=== PATIENT | female | born 1970 | race Caucasian/White ===

== ENCOUNTER 2016-10-09 19:01 | Emergency (ER) | payer MEDICAID ==
[2016-10-12 14:38] VITALS: BMI 24.3
== END 2016-10-09 21:54 | disposition home or self-care (01) ==
LOC: D.ER 19:01
DX: S30.860A Insect bite (nonvenomous) of lower back and pelvis, initial encounter (principal); W57.XXXA Bitten or stung by nonvenomous insect and other nonvenomous arthropods, initial encounter; Y93.89 Activity, other specified; Y92.89 Other specified places as the place of occurrence of the external cause; F17.200 Nicotine dependence, unspecified, uncomplicated

== ENCOUNTER 2016-10-12 11:29 | Inpatient (IN) | payer MEDICAID ==
[~2016-10-12] VITALS: Ht 170.2 cm; Wt 76.5 kg
[2016-10-12 12:24] LABS: BASOPHILS 0.1 % (0-2); EOSINOPHILS 0.8 % (0-7); HEMATOCRIT 40.8 % (36.0-48.0); HEMOGLOBIN 13.2 g/dL (12-16); IMMATURE GRANULOCYTES 0.4 % (0-5); LYMPHOCYTES 14.6 % (15-50); MCH 28.4 pg (26.0-34.0); MCHC 32.4 g/dL (31.0-37.0); MCV 87.7 fL (80.0-100.0); MEAN PLATELET VOLUME 10.2 fL (7.4-10.4); MONOCYTES 7.7 % (2-11); NEUTROPHILS 76.4 % (40-80); PLATELET COUNT 231 10x3/uL (130-400); RBC 4.65 10x6/uL (4.00-5.40); RDW 14.2 % (11.5-14.5); WBC 10.4 10x3/uL (4.8-10.8)
[2016-10-12 12:40] LABS: ANION GAP 12.8 mmol/L (8-16); CALCIUM 8.8 mg/dL (8.5-10.1); CARBON DIOXIDE 27.3 mmol/L (21.0-32.0); CREATININE - SERUM 1.1 mg/dL (0.6-1.3); POTASSIUM - SERUM 4.1 mmol/L (3.5-5.1)
[2016-10-12 14:38] VITALS: BP 116/62; Ht 170.2 cm; Wt 76.5 kg
--- NOTE | 2016-10-12 15:09 | NUR ---
PT AOX4 RESP EVEN AND NONLABORED PT COMPLAINS OF PAIN AT THIS TIME IN RIGHT HIP NO DRAINAGE FROM SITE. BLACK RING DRAWN AT BORDER OF REDNESS PRESENT AT ARRIVAL. IV TO LEFT FOREARM PATENT AND INTACT AT THIS TIME. SRX2 BED AT LOWEST SETTING CALL LIGHT WITHIN REACH WILL CONINTUE TO MONITOR
[2016-10-12 16:30] VITALS: BP 93/47
[2016-10-12 20:00] VITALS: BP 105/37
--- NOTE | 2016-10-12 20:45 | NUR ---
PATIENT RESTING IN BED AND DENIES NEEDS AT THIS TIME. ADMINISTERED MEDS PER ORDERS. BED IN LOWEST POSITION AND CALL LIGHT WITHIN REACH. ENCOURAGED THE PATIENT TO CALL IF SHE HAS NEEDS.
[2016-10-13 04:00] VITALS: BP 88/41
[2016-10-13 05:11] LABS: BASOPHILS 0.2 % (0-2); EOSINOPHILS 1.3 % (0-7); HEMOGLOBIN 12.9 g/dL (12-16); IMMATURE GRANULOCYTES 0.4 % (0-5); MCH 28.3 pg (26.0-34.0); MCHC 32.3 g/dL (31.0-37.0); MCV 87.7 fL (80.0-100.0); MEAN PLATELET VOLUME 10.5 fL (7.4-10.4); MONOCYTES 9.8 % (2-11); NEUTROPHILS 70.3 % (40-80); PLATELET COUNT 192 10x3/uL (130-400); RBC 4.56 10x6/uL (4.00-5.40); RDW 14.3 % (11.5-14.5); WBC 10.1 10x3/uL (4.8-10.8)
[2016-10-13 05:36] LABS: ANION GAP 10.5 mmol/L (8-16); CALCIUM 7.9 mg/dL (8.5-10.1); CARBON DIOXIDE 25.7 mmol/L (21.0-32.0); CREATININE - SERUM 0.9 mg/dL (0.6-1.3); POTASSIUM - SERUM 4.2 mmol/L (3.5-5.1)
--- NOTE | 2016-10-13 07:15 | NUR ---
PATIENT RECEIVED IN LOW FLETCHER POSITION RESTING QUIETLY. RESPIRATIONS EVEN AND UNLABORED. DENIES NEEDS. SIDE RAILS UP X2. BED IN LOW POSITION. CALL LIGHT IN REACH.
[2016-10-13 07:40] VITALS: BP 94/50
--- NOTE | 2016-10-13 09:00 | NUR ---
PATIENT C/O NAUSEA. ZOFRAN ADMINISTERED PER PRN ORDER. NO FURTHER NEEDS VOICED. SIDE RAILS UP X2. BED IN LOW POSITION. CALL LIGHT IN REACH.
--- NOTE | 2016-10-13 11:05 | NUR ---
PATIENT RESTING QUIETLY WITH EYES CLOSED. WAKES EASY. IV ABX INITIATED PER ORDERS. SCDS ON BILATERALLY. USE EXPLAINED. SIDE RAILS UP X2. BED IN LOW POSITION. CALL LIGHT IN REACH.
[2016-10-13 11:35] VITALS: BP 109/62
--- NOTE | 2016-10-13 12:38 | NUR ---
Patient Name: ROSAS LOUISE Admission Status: ER Accout number: [id number] Admission Date: 10-12-2016 : 1970 Admission Diagnosis:CELLULITIS OF BUTTOCK Attending: ROGE Current LOS: 1 Anticipated DC Date: 10-17-2016 Planned Disposition: Home Primary [place]: [place] [employer] [facility] Discharge Planning Comments: CM MET WITH PATIENT REGARDING D/C NEEDS AND PLANS. PATIENT STATED SHE LIVES WITH HER ROOMMATE (SIRISHA HOLLY) AND THERE ARE 3 STEPS W/RAILS TO ENTER HOME AND NO STAIRS INSIDE. PATIENT STATED SHE IS INDEPENDENT WITH HER CARE AND HAS A WALKER, SHOWER CHAIR, BS COMMODE, AND CANE AT HOME. PATIENT STATED HER MOTHER (PHAN) WILL DRIVE HER HOME AT DISCHARGE. PATIENTS PCP IS DR. RODRIGUEZ AND PHARMACY IS [facility] PATIENT REFUESED HOME HEALTH AT THIS TIME. CM WILL CONTINUE TO FOLLOW PATIENT WITH D/C NEEDS AND PLANS. PCP DR. MICHAEL BERG T. ON [address] [phone] PHAN PETERSON ([facility]) [phone] Back Tender Pulp Drier: Florina Hanna Is the patient Alert and Oriented? Yes 0 * How many steps to enter\exit or inside your home? 3 W/RAILS 0 * PCP DR. RODRIGUEZ 0 * Pharmacy [facility] 0 * Preadmission Environment Home with Family 0 * ADLs Independent 0 * Equipment Bedside Commode Cane Shower Chair Walker 0 * List name and contact numbers for known caregivers / representatives who currently or will assist patient after discharge: PHAN PETERSON ([facility]) [phone] ROOMMATE SIRISHA HOLLY 0 * Community resources currently utilized None 0 * Additional services required to return to the preadmission environment? Yes 0 * Can the patient safely return to the preadmission environment? Yes 0 * Has this patient been hospitalized within the prior 30 days at any hospital? No 0 Grand Total: 0
[2016-10-13 13:22] VITALS: BP 102/63
--- NOTE | 2016-10-13 13:25 | NUR ---
ALERT IN BED. C/O PAIN 11/10. MORPHINE PER PRN ORDER. DENIES FURTHER NEEDS. SIDE RAILS UP X2. BED IN LOW POSITION. CALL LIGHT IN REACH.
[2016-10-13 15:41] VITALS: BP 91/40
[2016-10-13 20:00] VITALS: BP 98/41
--- NOTE | 2016-10-13 20:20 | NUR ---
PATIENT RESTING IN BED WITH C/O PAIN. ADMINISTERED PAIN MEDS PER ORDERS. PATIENT DENIES OTHER NEEDS AT THIS TIME. BED IN LOWEST POSITION AND CALL LIGHT WITHIN REACH. ENCOURAGED PATIENT TO CALL IF SHE HAS FURTHER NEEDS.
[2016-10-14 03:49] VITALS: BP 117/68
[2016-10-14 05:48] LABS: BASOPHILS 0.1 % (0-2); EOSINOPHILS 1.6 % (0-7); HEMATOCRIT 35.8 % (36.0-48.0); HEMOGLOBIN 11.2 g/dL (12-16); IMMATURE GRANULOCYTES 0.4 % (0-5); LYMPHOCYTES 17.7 % (15-50); MCH 27.8 pg (26.0-34.0); MCHC 31.3 g/dL (31.0-37.0); MCV 88.8 fL (80.0-100.0); MEAN PLATELET VOLUME 10.1 fL (7.4-10.4); MONOCYTES 6.3 % (2-11); NEUTROPHILS 73.9 % (40-80); PLATELET COUNT 222 10x3/uL (130-400); RBC 4.03 10x6/uL (4.00-5.40); RDW 14.3 % (11.5-14.5)
[2016-10-14 05:54] LABS: ANION GAP 11.4 mmol/L (8-16); CALCIUM 7.7 mg/dL (8.5-10.1); CARBON DIOXIDE 24.7 mmol/L (21.0-32.0); CREATININE - SERUM 0.9 mg/dL (0.6-1.3); POTASSIUM - SERUM 4.1 mmol/L (3.5-5.1)
--- NOTE | 2016-10-14 07:25 | NUR ---
PATIENT RECEIVED IN LEFT LATERAL POSITION RESTING QUIETLY. RESPIRATIONS EVEN AND UNLABORED. SIDE RAILS UP X2. BED IN LOW POSITION. CALL LIGHT IN REACH. NO NEEDS VOICED.
--- NOTE | 2016-10-14 08:45 | NUR ---
PATIENT IN BED RESTING QUIETLY. RESPIRATIONS EVEN AND UNLABORED. C/O PAIN 12/11. DILAUDID ADMINISTERED. SLOW IVP PER PRN ORDER. NO FURTHER NEEDS VOICED. SIDE RAILS UP X2. BED IN LOW POSITION. CALL LIGHT IN REACH.
[2016-10-14 09:31] VITALS: BP 103/57
--- NOTE | 2016-10-14 10:14 | NUR ---
ALERT IN BED WATCHING TV. NO SIGNS OF DISTRESS NOTED. NOW RATES PAIN 10/10. DENIES NEEDS. BED IN LOW POSITION. SIDE RAILS UP X2. CALL LIGHT IN REACH.
[2016-10-14 12:14] VITALS: BP 104/60
--- NOTE | 2016-10-14 12:15 | NUR ---
ALERT IN BED WITH FAMILY PRESENT. NO SIGNS OF DISTRESS NOTED. SIDE RAILS UP X2. BED IN LOW POSITION. CALL LIGHT IN REACH.
[2016-10-14 14:35] LABS: HCG URINE NEGATIVE (NEGATIVE)
--- NOTE | 2016-10-14 14:50 | NUR ---
ALERT IN BED WITH FAMILY PRESENT. NO SIGNS OF DISTRESS NOTED. SCHEDULED IV ABX INITIATED. SIDE RAILS UP X2. BED IN LOW POSITION. CALL LIGHT IN REACH.
[2016-10-14 15:58] VITALS: BP 107/67
--- NOTE | 2016-10-14 16:15 | NUR ---
IV TO RIGHT FOREARM INFILTRATED. IV D/C PER NURY RN
--- NOTE | 2016-10-14 18:17 | NUR ---
PRE PROCEDURE MEDICATION GIVEN. WELL TOLERATED. DENIES NEEDS. CALL LIGHT IN REACH.
[2016-10-14 20:00] VITALS: BP 106/54
--- NOTE | 2016-10-14 20:00 | NUR ---
PATIENT IS UPSET THAT HER SX HAS BEEN POSTPONED AND WOULD LIKE IT RESCHEDULED FOR TOMORROW.
[2016-10-15] VITALS: BP 96/57
[2016-10-15 04:00] VITALS: BP 93/51
[2016-10-15 04:51] LABS: BASOPHILS 0.4 % (0-2); EOSINOPHILS 2.8 % (0-7); HEMATOCRIT 38.9 % (36.0-48.0); HEMOGLOBIN 12.4 g/dL (12-16); IMMATURE GRANULOCYTES 0.4 % (0-5); MCH 28.2 pg (26.0-34.0); MCHC 31.9 g/dL (31.0-37.0); MCV 88.4 fL (80.0-100.0); MEAN PLATELET VOLUME 10.1 fL (7.4-10.4); MONOCYTES 9.6 % (2-11); NEUTROPHILS 62.8 % (40-80); PLATELET COUNT 229 10x3/uL (130-400)
[2016-10-15 05:29] LABS: ANION GAP 12.2 mmol/L (8-16); CALCIUM 8.8 mg/dL (8.5-10.1); CARBON DIOXIDE 26.1 mmol/L (21.0-32.0); CREATININE - SERUM 0.9 mg/dL (0.6-1.3); POTASSIUM - SERUM 4.3 mmol/L (3.5-5.1)
--- NOTE | 2016-10-15 07:40 | NUR ---
PT AOX4 RESP EVEN AND NONLABORED PT DENIES NEEDS AT THIS TIME SRX2 BED AT LOWEST SETTING CALL LIGHT WITHIN REACH WILL CONTINUE TO MONITOR
[2016-10-15 08:05] VITALS: BP 99/54
[2016-10-15 12:12] VITALS: BP 107/68
[2016-10-15 14:44] VITALS: BP 93/56
[2016-10-15 20:00] VITALS: BP 111/62
[2016-10-16] VITALS: BP 108/56; BP 98/69
--- NOTE | 2016-10-16 02:59 | NUR ---
ASSESSED, PT IS ALSEEP WITH EASY RESPIRATIONS AND NO SIGNS OF DISTRESS NOTED. THE BED IS LOW, RAISL UP X'S 2 WITH THE CALL LIGHT AT HAND.
[2016-10-16 04:00] VITALS: BP 97/59
[2016-10-16 06:23] LABS: BASOPHILS 0.2 % (0-2); EOSINOPHILS 1.1 % (0-7); HEMATOCRIT 37.9 % (36.0-48.0); HEMOGLOBIN 12.1 g/dL (12-16); IMMATURE GRANULOCYTES 0.2 % (0-5); LYMPHOCYTES 15.4 % (15-50); MCH 28.4 pg (26.0-34.0); MCHC 31.9 g/dL (31.0-37.0); MEAN PLATELET VOLUME 10.1 fL (7.4-10.4); MONOCYTES 5.7 % (2-11); NEUTROPHILS 77.4 % (40-80); PLATELET COUNT 248 10x3/uL (130-400); RBC 4.26 10x6/uL (4.00-5.40); RDW 13.9 % (11.5-14.5)
[2016-10-16 06:24] LABS: WBC 8.7 10x3/uL (4.8-10.8)
[2016-10-16 06:44] LABS: ANION GAP 12.4 mmol/L (8-16); CALCIUM 8.2 mg/dL (8.5-10.1); CARBON DIOXIDE 25.5 mmol/L (21.0-32.0); POTASSIUM - SERUM 3.9 mmol/L (3.5-5.1)
--- NOTE | 2016-10-16 07:35 | NUR ---
PT AOX4 RESP EVEN AND NONLABORED PT DENIES NEEDS AT THIS TIME IV TO RIGHT IJ PATENT AND INTACT AT THIS TIME SRX2 BED AT LOWEST SETTING CALL LIGHT WITHIN REACH WILL CONTINUE TO MONITOR
[2016-10-16 08:39] VITALS: BP 110/69; BP 98/45
[2016-10-16 12:00] VITALS: BP 109/64
[2016-10-16 16:00] VITALS: BP 114/59
[2016-10-16 19:00] VITALS: BP 139/60
--- NOTE | 2016-10-16 20:42 | NUR ---
REC'D IN BED LYING ON RIGHT SIDE WITH EYES CLOSED EASILY TO AROUSED WHEN NAME IS CALLED. RESP EVEN AND UNLABORED WITH NO DISTRESS NOTED. CAN EXPRESS NEEDS AND WANTS. C/O NECK AND HIP PAIN WAS MEDICATED WITH NORCO 5/325 PER ORDERS. ASSESSMENT COMPLETED. C/L IN REACH AT BEDSIDE.
[2016-10-17] VITALS: BP 98/51
--- NOTE | 2016-10-17 00:16 | NUR ---
NO C/O NOTED RESTING WELL AT THIS TIME. C/L IN REACH AT BEDSIDE.
[2016-10-17 04:00] VITALS: BP 97/51
--- NOTE | 2016-10-17 04:11 | NUR ---
Resting quietly, IV infusing of NS @100ml/hr. On room air, respirations easy and regualr, no signs of distress. Eyes closed, appears to be sleeping.
[2016-10-17 06:49] LABS: BASOPHILS 0.2 % (0-2); EOSINOPHILS 3.9 % (0-7); HEMATOCRIT 37.2 % (36.0-48.0); HEMOGLOBIN 11.7 g/dL (12-16); IMMATURE GRANULOCYTES 0.5 % (0-5); LYMPHOCYTES 33.9 % (15-50); MCH 28.1 pg (26.0-34.0); MCHC 31.5 g/dL (31.0-37.0); MCV 89.4 fL (80.0-100.0); MEAN PLATELET VOLUME 9.8 fL (7.4-10.4); MONOCYTES 9.4 % (2-11); NEUTROPHILS 52.1 % (40-80); PLATELET COUNT 227 10x3/uL (130-400); RBC 4.16 10x6/uL (4.00-5.40); RDW 13.9 % (11.5-14.5)
[2016-10-17 06:54] LABS: WBC 4.4 10x3/uL (4.8-10.8)
[2016-10-17 07:13] LABS: CALC OSMOLALITY 278 mosm/kg (275-300); CALCIUM 8.1 mg/dL (8.5-10.1); CARBON DIOXIDE 27.6 mmol/L (21.0-32.0); CHLORIDE - SERUM 108 mmol/L (98-107); CREATININE - SERUM 0.8 mg/dL (0.6-1.3); GLUCOSE 105 mg/dL (74-106); POTASSIUM - SERUM 3.8 mmol/L (3.5-5.1); SODIUM 141 mmol/L (136-145); UREA NITROGEN 6 mg/dL (7-18); eGFR NON AFRICAN AMERICAN 82 mL/min (90-120)
--- NOTE | 2016-10-17 07:40 | NUR ---
SLEEPING, AROUSED TO VOICE, DENIES NEEDS, BED LOWEST POSITION, CALL LIGHT IN REACH, WILL CONTINUE TO MONITOR
[2016-10-17 10:16] VITALS: BP 101/54
[2016-10-17] MEDS ORDERED: HYDROCODON-ACE1 EAC7 PO (11:17)
[2016-10-17] MEDS ORDERED: KEFLEX500 MG PO (11:20)
[2016-10-17 12:09] VITALS: BP 126/69
--- NOTE | 2016-10-17 13:16 | NUR ---
PATIENT IJ REMOVED AT THIS TIME WITH CATH TIP INTACT. CLEANED WITH ALCOHOL AND DRESSING APPLIED. HELD PRESSURE AT THIS TIME FOR 2 MINUTES. NO BLEEDING NOTED. PATIENT TOLERATED WITH NO PAIN. CALL LIGHT WITHIN REACH.
--- NOTE | 2016-10-17 13:25 | NUR ---
DISCHARGE INSTRUCTIONS GIVEN, QUESTIONS ANSWERED, ERICA RN REMOVED IJ PLACED PRESSURE DRESSING, DISHCRAGE WITH BELONGINGS PER WC
--- NOTE | 2016-10-17 13:37 | NUR ---
CM met with patient to discuss discharging planning. Patient chose [facility] signed. Referral sent. CM received a call from [facility] stating that they are full and would not be able to accept this patient. Referral sent to Michelle with [facility]. Patient being discharged today with family to drive home.
== END 2016-10-17 14:03 | disposition home health service (06) | DRG 572 ==
LOC: D.ER 11:29 → D.MS 13:00
PROVIDERS: Anesthesiology; Nurse Practitioner Acute Care; Surgery; ADMIT Emergency Medicine
PROC: 0HB8XZZ Excision of Buttock Skin, External Approach (ICD-10-PCS; principal; 2016-10-15 10:00)
PROC: 05HM33Z Insertion of Infusion Device into Right Internal Jugular Vein, Percutaneous Approach (ICD-10-PCS; 2016-10-15 10:00)
DX: L02.31 Cutaneous abscess of buttock (principal); L03.317 Cellulitis of buttock; B95.61 Methicillin susceptible Staphylococcus aureus infection as the cause of diseases classified elsewhere